=== PATIENT | female | born 1955 | race Caucasian/White ===

== ENCOUNTER 2018-07-24 10:20 | Day surgery (SDC) | payer MEDICARE, MEDICAID ==
[2018-07-24] MEDS ORDERED: FENTAnyl 50 MCG/ML VIAL (11:46)
[2018-07-24] MEDS ORDERED: PROPOFOL 40 ML (11:46)
[2018-07-24] MEDS ORDERED: LIDOCAINE 100 MG SYRINGE (11:46)
== END 2018-07-24 14:33 | disposition home or self-care (01) ==
LOC: GIL 10:20
DX: Z12.11 Encounter for screening for malignant neoplasm of colon (principal); K64.8 Other hemorrhoids; K21.9 Gastro-esophageal reflux disease without esophagitis; K29.50 Unspecified chronic gastritis without bleeding
CPT/HCPCS: 43239; 88305; 88312